=== PATIENT | female | born 1970 | race Caucasian/White ===

== ENCOUNTER 2016-11-29 19:05 | Emergency (ER) | payer BC, OTHER ==
[2016-11-29 19:21] VITALS: BP 134/81
[2016-11-29] MEDS ORDERED: Sodium Chloride 0.9% 10 ML Syringe FLUSH PRN ×2 (19:46→20:38)
[2016-11-29] MEDS ORDERED: Hyoscyamine 0.125 MG Tab.SL SL ONE (19:48)
[2016-11-29] MEDS ORDERED: fentaNYL 100 MCG/2 ML SDV IVPUSH ONE (19:49)
--- NOTE | 2016-11-29 19:57 | EDM.PDOC ---
ED HPI GI/ABDOMINAL - General Chief Complaint: Abdominal Pain Stated Complaint: RIGHT SIDE PAIN Time Seen by Provider: 11/29/16 19:37 Source of Information: Reports: Patient History Limitations: Reports: No limitations - History of Present Illness INITIAL COMMENTS - FREE TEXT/NARRATIVE: Patient is a 46-year-old female complaining of right sided upper, pain that started last night approximately 2:00. Pain has been constant described as a knife twisting in her abdomen increased with taking a deep breath and decreased with gentle pressure. States it is similar to prior gallbladder attack 3 years ago. Patient did have a cholecystectomy at that time. She denies any bad or questional food or recent out of country travel. She does not know of any precipitating factors contributing to this discomfort. She is mildly nauseated. Pain is rated 8-10 at its peak. Currently at a 5/10. States she's had multiple episodes of diarrhea throughout the course of today with no blood noted. Denies any fever/chills, dysuria, hx of kidney stones, CP, SOB, cough, or aggravation with eating. Past medical history none stated. Current medications listed. Surgical history hysterectomy, 4 C-sections, bilateral knee, bilateral hand, lumpectomy Provider provider: Elsi Braun Denies Smoking, alcohol, or recreational drug use. Timing/Duration: Reports: Constant, Waxing/waning Location: flank (right) Quality: Reports: ache, stabbing, throbbing Severity: severe Improves with: Reports: other (pressure) Worsens with: Reports: other (taking deep breath) Context: Denies: sick contact, bad/questionable food, out of country travel, recent surgery, recent trauma, lifting, activity/exercise Associated Symptoms (-Female): Reports: diarrhea, fever/chills, loss of appetite, nausea/vomiting. Denies: chest pain, back pain, groin pain, shoulder pain, constipation, bloody stools, malaise Treatments [employer]: Reports: Other (see below) (none stated) - Related Data Allergies/ADRs: Allergies Allergy/AdvReac Type Severity Reaction Status Date / Time hydromorphone HCl Allergy Cannot Verified 11/29/16 19:17 [From Dilaudid] Remember sulfamethoxazole Allergy Rash Verified 11/29/16 19:17 [From Bactrim] trimethoprim [From Bactrim] Allergy Rash Verified 11/29/16 19:17 Home Meds: Home Meds . [No Known Home Meds] 11/29/16 [History] Past Medical History Other OB/BYN History: History of X 4 - Past Surgical History Other HEENT Surgeries/Procedures: wisdom teeth removed Other Cardiovascular Surgeries/Procedures: lump removed from breast-benign GI Surgical History: Reports: Cholecystectomy Other Female Surgeries/Procedures: c-sect X 4 Other Musculoskeletal Surgeries/Procedures:: Left knee cyst removed, bilateral knee arthroscopy, middle right finger, right pinky finger Social & Family History - Tobacco Use Smoking Status *Q: Never Smoker Second Hand Smoke Exposure: No - Alcohol Use Days Per Week of Alcohol Use: 0 (reports drinking alcohol less than one time per month) - Recreational Drug Use Recreational Drug Use: No Drug Use in Last 12 Months: No ED ROS GENERAL - Review of Systems Review Of Systems: See Below Constitutional: Reports: malaise, decreased appetite. Denies: fever, chills HEENT: Reports: No symptoms Respiratory: Reports: No Symptoms Cardiovascular: Reports: No symptoms GI/Abdominal: Reports: Abdominal pain, Diarrhea, Decreased appetite, Nausea, Vomiting. Denies: Black stool, Bloody stool, Constipation, Difficulty swallowing, Distension, Flatus, Hematemesis, Melena : Reports: no symptoms Musculoskeletal: Reports: no symptoms ED EXAM, GI/ABD - Physical Exam Exam: See Below Exam Limited By: No limitations General Appearance: alert, WD/WN, moderate distress Ears: hearing grossly normal Nose: normal inspection Throat/Mouth: Normal voice, No airway compromise Head: atraumatic, normocephalic Neck: normal inspection, supple Respiratory/Chest: no respiratory distress, lungs clear, normal breath sounds, no accessory muscle use, chest non-tender Cardiovascular: normal peripheral pulses, regular rate, rhythm, no murmur GI/Abdominal: normal bowel sounds, soft, no organomegaly, no distention, no abnormal bruit, no mass, tenderness (RUQ/Flank) (Female) Exam: Deferred Rectal (Female) Exam: Deferred Back Exam: normal inspection. No: CVA tenderness (L), CVA tenderness (R) Neurological: alert, oriented, CN II-XII intact, normal cognition Psychiatric: normal affect, normal mood Skin Exam: Warm, Dry, Intact, Normal color Course - Vital Signs Last Recorded V/S: Last Vital Signs Temp 97.7 F 11/29/16 19:18 Pulse 78 11/29/16 22:33 Resp 16 11/29/16 22:33 BP 134/81 11/29/16 19:18 Pulse Ox 100 11/29/16 22:33 - Orders/Labs/Meds Orders: Active Orders 24 hr Category Date Time Status Peripheral IV Care [RC] . DIRECTED Care 11/29/16 19:47 Active Peripheral IV Insertion Adult [OM.PC] Stat Oth 11/29/16 19:46 Ordered Labs: Laboratory Tests 11/29/16 11/29/16 11/29/16 Range/Units 19:47 19:57 19:57 WBC 7.37 (3.98-10.04) K/mm3 RBC 4.76 (3.98-5.22) M/mm3 Hgb 14.1 (11.2-15.7) gm/L Hct 41.1 (34.1-44.9) % MCV 86.3 (79.4-94.8) fl MCH 29.6 (25.6-32.2) pg MCHC 34.3 (32.2-35.5) g/dl RDW Std Deviation 39.8 (36.4-46.3) fL Plt Count 178 L (182-369) K/mm3 MPV 10.4 (9.4-12.3) fl Neut % (Auto) 54.5 (34.0-71.1) % Lymph % (Auto) 35.1 (19.3-51.7) % [place] % (Auto) 8.3 (4.7-12.5) % Eos % (Auto) 1.9 (0.7-5.8) Baso % (Auto) 0.1 (0.1-1.2) % Neut # (Auto) 4.01 (1.56-6.13) K/mm3 Lymph # (Auto) 2.59 (1.18-3.74) K/mm3 [place] # (Auto) 0.61 H (0.24-0.36) K/mm3 Eos # (Auto) 0.14 (0.04-0.36) K/mm3 Baso # (Auto) 0.01 (0.01-0.08) K/mm3 Sodium 139 (136-145) mEq/L Potassium 3.9 (3.5-5.1) mEq/L Chloride 103 (98-107) mEq/L Carbon Dioxide 26 (21-32) mEq/L Anion Gap 13.9 (5-15) BUN 9 (7-18) mg/dL Creatinine 0.8 (0.55-1.02) mg/dL Est Cr Clr Drug Dosing 79.91 mL/min Estimated GFR (MDRD) > 60 (>60) mL/min BUN/Creatinine Ratio 11.3 L (14-18) Glucose 99 (74-106) mg/dL Calcium 8.7 (8.5-10.1) mg/dL Total Bilirubin 0.5 (0.2-1.0) mg/dL AST 17 (15-37) U/L ALT 36 (14-59) U/L Alkaline Phosphatase 50 (46-116) U/L C-Reactive Protein 0.7 (<1.0) mg/dL Total Protein 7.5 (6.4-8.2) g/dl Albumin 4.0 (3.4-5.0) g/dl Globulin 3.5 gm/dL Albumin/Globulin Ratio 1.1 (1-2) Lipase 114 (73-393) U/L Urine Color Light yellow (Yellow) Urine Appearance Clear (Clear) Urine pH 6.0 (5.0-8.0) Ur Specific [place] 1.015 (1.005-1.030) Urine Protein Negative (Negative) Urine Glucose (UA) Negative (Negative) Urine Ketones Negative (Negative) Urine Occult Blood Negative (Negative) Urine Nitrite Negative (Negative) Urine Bilirubin Negative (Negative) Urine Urobilinogen 0.2 (0.2-1.0) Ur Leukocyte Esterase Negative (Negative) Urine RBC Not seen (0-5) /hpf Urine WBC 0-5 (0-5) /hpf Ur Epithelial Cells 5-10 H (0-5) /hpf Urine Bacteria Not seen (FEW) /hpf Urine Mucus Not seen (FEW) /hpf Meds: Medications Discontinued Medications Generic Name Dose Route Start Last Admin Trade Name Freq PRN Reason Stop Dose Admin Diatrizoate Meglum/Diatrizoate Sod 120 ml 11/29/16 20:38 11/29/16 21:26 Gastrografin 37% PO 11/29/16 20:39 90 ml ONETIME ONE Administration Diphenhydramine HCl 50 mg 11/29/16 22:15 11/29/16 22:24 Benadryl IVPUSH 11/29/16 22:16 50 mg ONETIME ONE Administration Docusate Sodium 100 mg 11/29/16 22:15 11/29/16 22:22 Colace PO 11/29/16 22:16 100 mg ONETIME ONE Administration Fentanyl 100 mcg 11/29/16 19:49 11/29/16 20:14 Sublimaze IVPUSH 11/29/16 19:50 100 mcg ONETIME ONE Administration Hyoscyamine 0.125 mg 11/29/16 19:48 11/29/16 20:13 Hyomax-Sl SL 11/29/16 19:49 0.125 mg ONETIME ONE Administration Sodium Chloride 1,000 mls @ 125 mls/hr 11/29/16 20:00 11/29/16 20:13 Normal Saline IV 125 mls/hr ASDIRECTED CRIS Administration Iopamidol 150 ml 11/29/16 20:38 11/29/16 21:26 Isovue-300 (61%) IVPUSH 11/29/16 20:39 125 ml ONETIME ONE Administration Magnesium Citrate 296 ml 11/29/16 22:15 11/29/16 22:23 Citrate Of Magnesia PO 11/29/16 22:16 296 ml ONETIME ONE Administration Metoclopramide HCl 10 mg 11/29/16 22:15 11/29/16 22:26 Reglan IVPUSH 11/29/16 22:16 10 mg ONETIME ONE Administration Sodium Chloride 10 ml 11/29/16 19:46 11/29/16 20:14 Saline Flush FLUSH 10 ml ASDIRECTED PRN Administration Keep Vein Open Sodium Chloride 10 ml 11/29/16 20:38 11/29/16 21:27 Saline Flush FLUSH 10 ml ONETIME PRN Administration IV FLUSH - Re-Assessments/Exams Free Text/Narrative Re-Assessment/Exam: 11/29/16 19:52 Ordered a peripheral IV with normal saline 125mls/hr, Zofran 4 mg IVP, Levsin sublingual, fentanyl 100 mcqs, CBC, CRP, chem 14, lipase, UA with micro, and abdominal pelvis CT with oral and IV contrast. Pain has decreased to a 3/10. Labs reviewed: essentially normal. Awaiting results of CT abdomen/pelvis. 2206: CT abdomen pelvis impression: Nothing acute is identified on CT Study of the abdomen and pelvis. Reviewed CT with Dr. Pickens, copious amounts of stool within colon. 2212: Reassessment, patient remains nauseated. Will order reglan 10mg IVP, benadryl 50mg IVP, and colace 100mg PO. Will discharge patient home with bottle of mag citrate. Discharge instructions as documented. Patient refused prescription for narcotic pain medications. Departure - Departure Time of Disposition: 22:18 Disposition: Home, Self-Care 01 Condition: fair Clinical Impression: Abdominal pain Qualifiers: Abdominal location: right upper quadrant Qualified Code(s): R10.11 - Right upper quadrant pain Constipation Qualifiers: Constipation type: unspecified constipation type Qualified Code(s): K59.00 - Constipation, unspecified Nausea & vomiting Qualifiers: Vomiting type: unspecified Vomiting Intractability: non-intractable Qualified Code(s): R11.2 - Nausea with vomiting, unspecified Instructions: Abdominal Pain, Adult, [id number], Nausea and Vomiting, Adult, [id number], Constipation, Adult, [id number] Referrals: PCP,None [Primary Care Provider] - Forms: ED Department Discharge, Return to Work/School Form Additional Instructions: As discussed labs and CT abdomen/pelvis did not reveal any acute findings. Increased stool noted throughout the colon suggesting constipation. Will have you take zofran 4mg ODT every 6 hrs for nausea. Take 1/2 bottle of mag citrate PO this evening and if no results by the morning take the other half. Continue to take colace 100mg twice a day for 5 days. Thereafter take miralax 1 capful daily for 1 month. Push the fluids. Advancing diet as tolerated. Follow up with PCP if symptoms persist. Return to the E.D. for any new or worsening symptoms. No driving this evening since receiving an sedative medication. - My Orders Last 24 Hours: My Active Orders 11/29/16 19:46 Peripheral IV Insertion Adult [OM.PC] Stat 11/29/16 19:47 Peripheral IV Care [RC] . DIRECTED - Assessment/Plan Last 24 Hours: My Active Orders 11/29/16 19:46 Peripheral IV Insertion Adult [OM.PC] Stat 11/29/16 19:47 Peripheral IV Care [RC] . DIRECTED
[2016-11-29] MEDS ORDERED: Sodium Chloride 0.9% 1,000 ML IV SCH (20:00)
[2016-11-29] MEDS ORDERED: Diatrizoate Meglumine/Diatrizoate Sodium 37% 120 ML Bottle PO ONE (20:38)
[2016-11-29] MEDS ORDERED: Iopamidol 612 MG/ML 150 ML Bottle IVPUSH ONE (20:38)
--- NOTE | 2016-11-29 21:51 | CT ---
CT abdomen and pelvis Technique: Multiple axial sections were obtained from above the dome of the diaphragm inferiorly through the pubic symphysis. Intravenous and oral contrast was utilized. Comparison: Previous noncontrast CT exam performed as a ureteral stone protocol dated 12/18/1914. Findings: Visualized lung bases shows nothing acute. Liver shows no focal parenchymal abnormality. Spleen appears within normal limits. Adrenal glands show no nodule. Surgical clips are seen from prior cholecystectomy. Pancreas appears within normal limits. Aorta shows no aneurysmal dilatation. No retroperitoneal adenopathy or mesenteric abnormalities are seen. Appendix is seen which appears normal. Diverticuli are seen within the sigmoid colon. No inflammatory change or free fluid is seen. No bowel dilatation is seen. Delayed images were obtained which shows contrast within the bladder. Bone window settings were reviewed which shows disc space narrowing and posterior osteophytes at L5-S1 as well as vacuum phenomena. Bony structures otherwise are unremarkable for the patient's age. Impression: 1. Incidental findings as described above. Nothing acute is identified on CT study of the abdomen and pelvis. Diagnostic code #2
[2016-11-29] MEDS ORDERED: Metoclopramide 10 MG/2 ML SDV IVPUSH ONE (22:15)
[2016-11-29] MEDS ORDERED: diphenhydrAMINE 50 MG/ML SDV IVPUSH ONE (22:15)
[2016-11-29] MEDS ORDERED: Docusate Sodium 100 MG Cap PO ONE (22:15)
[2016-11-29] MEDS ORDERED: Magnesium Citrate Solution 296 ML Bottle PO ONE (22:15)
== END 2016-11-29 22:30 | disposition home or self-care (01) ==
LOC: JD.ED 19:05
DX: K59.00 Constipation, unspecified (principal); R10.11 Right upper quadrant pain; R11.2 Nausea with vomiting, unspecified; Z88.5 Allergy status to narcotic agent; Z88.2 Allergy status to sulfonamides; Z90.49 Acquired absence of other specified parts of digestive tract
CPT/HCPCS: 36415; 74177; 80053; 81001; 83690; 85025; 86140; 96361; 96374; 96375; 99284; A9270; J1200; J2765; J3010; J7040; J7050; Q9963; Q9967